=== PATIENT | female | born 1935 | race Caucasian/White ===

== ENCOUNTER 2016-12-13 14:05 | Emergency (ER) | payer MEDICARE ==
[~2016-12-13 14:05] MED LIST: AMBI5TAB; ATEN1TAB73; CALC-179; CITA20TA4 PO; DICY1TAB26 PO; ESTR42.5V PV; GAS-CAP3 PO; HYDR12.56 PO; LOPE2 PO; LORTA5 PO; PROBCAP11; RISE30 PO; VITA400C28 PO; WELL150T
[2016-12-13 14:09] VITALS: PULSE 77; RESP 18; O2SAT 96
[2016-12-13] MEDS ORDERED: RISE30 PO (14:14)
[2016-12-13] MEDS ORDERED: HYDR12.56 PO (14:14)
[2016-12-13] MEDS ORDERED: BUPR150CR PO (14:14)
[2016-12-13] MEDS ORDERED: LACTCAP8 PO (14:14)
[2016-12-13] MEDS ORDERED: ESTR42.5V VAGINAL (14:14)
[2016-12-13] MEDS ORDERED: ATEN25TA PO (14:14)
[2016-12-13] MEDS ORDERED: FAMOTIDINE 20 MG/2 ML VIAL IV PUSH ONE (14:15)
[2016-12-13] MEDS ORDERED: methylPREDNISolone SOD SUCC 125 MG/2 ML VIAL IVP ONE (14:15)
[2016-12-13] MEDS ORDERED: EPINEPHrine HCL (1:1000) 1 MG/ML VIAL IM ONE (14:15)
[2016-12-13 14:20] VITALS: BP 156/61; PULSE 66; RESP 18; TEMP 98; O2SAT 98
[2016-12-13] MEDS ORDERED: CALCCHW9 CHEW (14:28)
[2016-12-13] MEDS ORDERED: CITA20TA4 PO (14:28)
[2016-12-13] MEDS ORDERED: HYDR-3516 PO (14:30)
[2016-12-13 14:56] VITALS: BP 147/57; PULSE 80; RESP 18; O2SAT 98
[2016-12-13] MEDS ORDERED: BENA25TA3 PO (15:06)
[2016-12-13] MEDS ORDERED: ZYRT10CA PO (15:19)
[2016-12-13] MEDS ORDERED: ZANT300T PO (15:19)
[2016-12-13] MEDS ORDERED: PRED20 PO (15:19)
--- NOTE | 2016-12-13 15:19 | PD ---
HPI Chief Complaint: Allergic/Adverse Reaction Time Seen by Provider: 14:11 Travel History International Travel<30 days: No Contact w/Intl Traveler<30days: No Traveled to known affect area: No History of Present Illness HPI 81-year-old female complains of itching rash. Patient states that the rash started about 2 hours prior coming to the emergency room. Patient states the rash is worse on her face and upper extremity and upper chest and back. Patient used a new makeup in new hairspray today. Patient states that she has some discomfort in her throat however no shortness of breath. Patient denies any chest pain. 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) Cardiovascular Problems: Yes (MITRAL VALVE PROLAPSE) Diminished Hearing: No Hypertension: Yes Influenza Vaccination: Yes ?: Not Menopausal: Yes Past Surgical History Appendectomy: Yes Cholecystectomy: Yes Eye Surgery: Yes (1989) Genitourinary Surgery: Yes (URETHRA 1989) Joint Replacement: Yes (L KNEE) Other Surgery: Yes (BREAST CA) Social History Alcohol Use: Yes Tobacco Use: No Substance Use: No Allergies-Medications (Allergen,Severity, Reaction): Coded Allergies: No Known Allergies (Verified , 12/13/16) Reported Meds & Prescriptions Reported Meds & Active Scripts Active Reported Benadryl Allergy (Diphenhydramine HCl) 25 Mg Tab 50 Mg PO ONCE PRN Hydrocodone-Acetaminophen 5-325 mg Tab 1 Tab PO DAILY PRN Calcium 1200 (Calcium Carbonate-Vitamin D W/Minerals) 1,200-1,000 Mg-Unit Chew 1 Tab CHEW DAILY Citalopram (Citalopram Hydrobromide) 20 Mg Tab 20 Mg PO DAILY Estrace Vaginal (Estradiol) 0.01% Cream 1 Appl VAGINAL WEEKLY Actonel (Risedronate) 30 Mg Tab 30 Mg PO DAILY Probiotic (Lactobacillus Acidophilus) 1 Cap Cap 1 Cap PO TIDAC Wellbutrin SR 12 HR (Bupropion HCl) 150 Mg Tab 150 Mg PO Q12HR Hydrochlorothiazide 12.5 Mg Tab 12.5 Mg PO DAILY Atenolol 25 Mg Tab 25 Mg PO DAILY Review of Systems General / Constitutional: No: Fever Eyes: No: Visual changes HENT: No: Headaches Cardiovascular: No: Chest Pain or Discomfort Respiratory: No: Shortness of Breath Gastrointestinal: No: Abdominal Pain Genitourinary: No: Dysuria Musculoskeletal: No: Pain Skin: Positive Rash, Positive Itching Neurologic: No: Weakness Psychiatric: No: Depression Endocrine: No: Polydipsia Hematologic/Lymphatic: No: Easy Bruising Physical Exam Narrative GENERAL: Well-nourished, well-developed patient. SKIN: Focused skin assessment warm/dry. HEAD: Normocephalic. EYES: No scleral icterus. No injection or drainage. Throat: Mild uvula edema. NECK: Supple, trachea midline. No JVD or lymphadenopathy. CARDIOVASCULAR: Regular rate and rhythm without murmurs, gallops, or rubs. RESPIRATORY: Breath sounds equal bilaterally. No accessory muscle use. No stridor or wheezes. GASTROINTESTINAL: Abdomen soft, non-tender, nondistended. MUSCULOSKELETAL: No cyanosis, or edema. BACK: Nontender without obvious deformity. No CVA tenderness. Neurologic exam normal. Data Data Last Documented VS Vital Signs Date Time Temp Pulse Resp B/P Pulse Ox O2 Delivery O2 Flow Rate FiO2 12/13/16 14:56 80 18 147/57 98 Room Air 12/13/16 14:20 98.0 Orders Ecg Monitoring (12/13/16 14:11) Iv Access Insert/Monitor (12/13/16 14:11) Oximetry (12/13/16 14:11) Methylprednisolone So Succ Inj (Solumedr (12/13/16 14:15) Famotidine Inj (Pepcid Inj) (12/13/16 14:15) Epinephrine (1:1000) Inj (Adrenalin (1:1 (12/13/16 14:15) MDM Medical Decision Making Medical Screen Exam Complete: Yes Emergency Medical Condition: Yes Differential Diagnosis Differential diagnoses include allergic reaction, anaphylactoid reaction. Narrative Course 81-year-old female with itching rash. Epinephrine 0.3 mg IM. Patient took Benadryl 50 mg by mouth prior to arrival. Solu-Medrol 125 mg IV. Pepcid 20 mg IV. 1517 p.m. Reexamination patient's feeling better. Rash completely resolved. Diagnosis Primary Impression: Allergic reaction Qualified Code: T78.40XA - Allergic reaction, initial encounter Patient Instructions: General Instructions Additional Instructions: Take medications as directed. Follow-up with personal physician. Return if worse. Med/Other Pt SpecificInfo: Prescription(s) given Scripts Ranitidine (Zantac)300 Mg Pnp447 Mg PO DAILY #10 TAB Ref 0 Prov:Jero Rosenbaum MD 12/13/16 Cetirizine (Zyrtec Allergy)10 Mg Cap10 Mg PO DAILY #10 CAP Ref 0 Prov:Jero Rosenbaum MD 12/13/16 Prednisone 20 Mg Tab20 Mg PO BID #10 TAB Prov:Jero Rosenbaum MD 12/13/16 Disposition: 01 DISCHARGE HOME Condition: Stable Jero Rosenbaum MD Dec 13, 2016 15:19
== END 2016-12-13 15:27 | disposition home or self-care (01) ==
LOC: PHED 14:05
DX: T78.40XA Allergy, unspecified, initial encounter (principal)
CPT/HCPCS: 96372; 96374; 96375; 99282; J2930

== ENCOUNTER 2016-12-28 18:19 | Emergency (ER) | payer MEDICARE ==
[~2016-12-28] VITALS: Ht 149.9 cm; Wt 52.4 kg
[~2016-12-28 18:19] MED LIST changes: -AMBI5TAB; -ATEN1TAB73; +ATEN25TA PO; +BENA25TA3 PO; +BUPR150CR PO; -CALC-179; +CALCCHW9 CHEW; -DICY1TAB26 PO; -ESTR42.5V PV; +ESTR42.5V VAGINAL; -GAS-CAP3 PO; +HYDR-3516 PO; +LACTCAP8 PO; -LOPE2 PO; -LORTA5 PO; +PRED20 PO; -PROBCAP11; -VITA400C28 PO; -WELL150T; +ZANT300T PO; +ZYRT10CA PO
[2016-12-28 18:24] VITALS: BP 148/68; PULSE 68; RESP 16; TEMP 98.7; O2SAT 93
--- NOTE | 2016-12-28 18:57 | PD ---
HPI Chief Complaint: Fall Time Seen by Provider: 18:47 Travel History International Travel<30 days: No Contact w/Intl Traveler<30days: No Traveled to known affect area: No History of Present Illness HPI This 81-year-old female had a fall at home. It was a mechanical fall. She hit her left arm and also hit the left side of her head. She does not think she had a loss of consciousness. She has considerable swelling on the left side of her head . She also sustained a laceration of the left arm. She does not think she had a loss of consciousness. 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) Cardiovascular Problems: Yes (HTN) Diabetes: No Diminished Hearing: No Hypertension: Yes Tetanus Vaccination: < 5 Years Influenza Vaccination: No ?: Not Menopausal: Yes Past Surgical History Appendectomy: Yes Cholecystectomy: Yes Eye Surgery: Yes (1989) Genitourinary Surgery: Yes (URETHRA 1989) Joint Replacement: Yes (L KNEE) Other Surgery: Yes (BREAST CA) Social History Alcohol Use: Yes Tobacco Use: No Substance Use: No Allergies-Medications (Allergen,Severity, Reaction): Coded Allergies: No Known Allergies (Verified , 12/28/16) Reported Meds & Prescriptions Reported Meds & Active Scripts Active Reported Citalopram (Citalopram Hydrobromide) 20 Mg Tab 20 Mg PO DAILY Wellbutrin SR 12 HR (Bupropion HCl) 150 Mg Tab 150 Mg PO Q12HR Atenolol 25 Mg Tab 25 Mg PO DAILY Review of Systems General / Constitutional: No: Fever, Chills Eyes: No: Diploplia HENT: No: Headaches, Vertigo Cardiovascular: No: Chest Pain or Discomfort, Palpitations Respiratory: No: Cough, Shortness of Breath Gastrointestinal: No: Nausea, Vomiting Genitourinary: No: Urgency Musculoskeletal: Positive: Myalgias Neurologic: No: Weakness Endocrine: No: Heat Intolerance Physical Exam Narrative GENERAL: Well-developed female SKIN: Focused skin assessment warm/dry. HEAD: . Normocephalic. There is a swollen tender area in the left temporal portion of the scalp. There is a small abrasion overlying the area of swelling. There is no neck tenderness EYES: Pupils equal and round. No scleral icterus. No injection or drainage. ENT: No nasal bleeding or discharge. Mucous membranes pink and moist. NECK: Trachea midline. No JVD. CARDIOVASCULAR: Regular rate and rhythm. No murmur appreciated. RESPIRATORY: No accessory muscle use. Clear to auscultation. Breath sounds equal bilaterally. GASTROINTESTINAL: Abdomen soft, non-tender, nondistended. Hepatic and splenic margins not palpable. MUSCULOSKELETAL: No obvious deformities. No clubbing. No cyanosis. No edema. He is a very superficial laceration on the extensor surface of the left forearm. It is about 3 cm in length NEUROLOGICAL: Awake and alert. No obvious cranial nerve deficits. Motor grossly within normal limits. Normal speech. PSYCHIATRIC: Appropriate mood and affect; insight and judgment normal. Data Data Last Documented VS Vital Signs Date Time Temp Pulse Resp B/P Pulse Ox O2 Delivery O2 Flow Rate FiO2 12/28/16 18:24 98.7 68 16 148/[address] Brain W/O Iv Contrast(Rout) (12/28/16 18:52) [facility] Medical Decision Making Medical Screen Exam Complete: Yes Emergency Medical Condition: Yes Medical Record Reviewed: Yes Differential Diagnosis Differential includes skull fracture, subdural, contusion, laceration Narrative Course The laceration of the left arm is fairly superficial and I think will heal without sutures. CT scan of the brain has been obtained and is negative for fracture or hemorrhage. Wounds have been cleaned and the patient will be released Diagnosis Primary Impression: Contusion of head Qualified Code: S00.83XA - Contusion of other part of head, initial encounter Additional Impression: Laceration of arm Disposition: DISCHARGE HOME Condition: Stable Blu Ellis MD Dec 28, 2016 18:57
[2016-12-28 20:00] VITALS: BP 181/59; PULSE 62; RESP 18; O2SAT 97
--- NOTE | 2016-12-28 20:08 | RADHPO ---
EXAM DATE/TIME: 12/28/2016 19:51 [facility] COMPARISON: No previous studies available for comparison. INDICATIONS : Trauma. Fall. Left temporal pain and swelling. RADIATION DOSE: 55.67 CTDIvol (mGy) MEDICAL HISTORY : Hypertension. Carcinoma, breast. SURGICAL HISTORY : Tonsillectomy. ENCOUNTER: Initial ACUITY: 1 day PAIN SCALE: 4/10 LOCATION: Left temporal TECHNIQUE: Multiple contiguous axial images were obtained of the head. Using automated exposure control and adj ustment of the mA and/or kV according to patient size, radiation dose was kept as low as reasonably a chievable to obtain optimal diagnostic quality images. FINDINGS: There is a left temporal scalp hematoma identified. There is moderate periventricular and bilateral c entrum semiovale white matter disease, chronic in appearance. There are no fractures. There is no int racranial hemorrhage present. No masses. CONCLUSION: White matter disease and left temporal scalp hematoma. Avni Fan MD on December 28, 2016 at 20:06 Board Certified Radiologist. This report was verified electronically.
== END 2016-12-28 20:36 | disposition home or self-care (01) ==
LOC: PHED 18:19
DX: S00.93XA Contusion of unspecified part of head, initial encounter (principal); S41.119A Laceration without foreign body of unspecified upper arm, initial encounter; I10 Essential (primary) hypertension; W01.10XA Fall on same level from slipping, tripping and stumbling with subsequent striking against unspecified object, initial encounter; Y93.01 Activity, walking, marching and hiking; Y92.009 Unspecified place in unspecified non-institutional (private) residence as the place of occurrence of the external cause
CPT/HCPCS: 70450

== ENCOUNTER 2018-10-28 15:03 | Observation (INO) ==
--- NOTE | 2018-10-28 15:52 | ED ---
HPI General Chief complaint: Dizziness Stated complaint: Dizzy/"feels off" Time Seen by Provider: 10/28/18 15:47 Source: patient Mode of arrival: ambulatory Limitations: no limitations History of Present Illness HPI narrative: This 83-year-old female had an episode today where when she was looking up her vision was abnormal. She felt like it was blurred and she could not see very well. When she looked down things were okay. This episode lasted about 6 minutes and then resolved. Since this episode she has been able to walk. She had no numbness or weakness of the legs. She did did not have a headache. She felt a little bit dizzy but that has resolved. She has a history of mitral valve prolapse she has a history of breast cancer is a had gallbladder surgery. She does not take aspirin. She has had hypertension Related Data Home Medications Medication Instructions Recorded Confirmed bupropion HCl [Wellbutrin SR] 100 mg PO DAILY 07/08/18 10/28/18 calcium carbonate [Calcium 600] 1 cap PO DAILY 07/08/18 10/28/18 cholecalciferol (vitamin D3) 2,000 unit PO DAILY 07/08/18 10/28/18 [Vitamin D3] citalopram 20 mg PO DAILY 07/08/18 10/28/18 hydrochlorothiazide 12.5 mg PO DAILY 07/08/18 10/28/18 metoprolol tartrate 50 mg PO DAILY 07/08/18 10/28/18 Previous Rx's Medication Instructions Recorded aspirin [Aspir-] 81 mg PO DAILY #30 tab 10/29/18 Allergies Allergy/AdvReac Type Severity Reaction Status Date / Time No Known Allergies Allergy Verified 10/28/18 15:09 Review of Systems ROS: all other systems reviewed are negative [facility] Medical History Medical History Anxiety (Acute) Breast cancer (Acute) Cyst of ovary, left (Acute) History of chemotherapy (Acute) Hx of radiation therapy (Acute) Hypertension (Acute) Surgical History Surgical History History of bunionectomy (Acute) History of knee replacement (Acute) Hx of appendectomy (Acute) Hx of removal of ovary (Acute) Hx of tonsillectomy (Acute) S/P lumpectomy, left breast (Acute) Social History Social History Substance History: No History of Abuse Second Hand Smoke Exposure: No Smoking Status: Former smoker Tobacco Type: Cigarettes How Often Do You Have a Drink Containing Alcohol: 4 or more times a week Recent Travel in [facility] within the Last 8 Weeks: No Recent Out of Country Travel within the Last 8 Weeks: No Immunization History Tetanus Immunization: <5 Years Exam Narrative Exam Narrative: GENERAL: Well-developed female SKIN: Focused skin assessment warm/dry. HEAD: Atraumatic. Normocephalic. EYES: Pupils equal and round. No scleral icterus. No injection or drainage. Visual laws are intact by confrontation ENT: No nasal bleeding or discharge. Mucous membranes pink and moist. NECK: Trachea midline. No JVD. CARDIOVASCULAR: Regular rate and rhythm. No murmur appreciated. RESPIRATORY: No accessory muscle use. Clear to auscultation. Breath sounds equal bilaterally. GASTROINTESTINAL: Abdomen soft, non-tender, nondistended. Hepatic and splenic margins not palpable. MUSCULOSKELETAL: No obvious deformities. No clubbing. No cyanosis. No edema. NEUROLOGICAL: Awake and alert. No obvious cranial nerve deficits. Motor grossly within normal limits. Normal speech. PSYCHIATRIC: Appropriate mood and affect; insight and judgment normal. Course Initial Documented Vital Signs Temperature 98.5 F 10/28/18 15:10 Pulse Rate 83 10/28/18 15:10 Respiratory Rate 16 10/28/18 15:10 Blood Pressure 125/68 10/28/18 15:10 Pulse Oximetry 95 10/28/18 15:10 Last Documented Vital Signs Temperature 96.2 F L 10/29/18 08:00 Pulse Rate 65 10/29/18 08:00 Respiratory Rate 20 10/29/18 08:00 Blood Pressure 145/65 H 10/29/18 08:00 Pulse Oximetry 92 L 10/29/18 08:00 Sign Out Sign Out Data: Patient Sign Out occurred on 10/28/18 at 16:17. Patient's care was discussed, and care was transferred from Blu Romero MD to Jarod Horne MD. Sign Out Comment: This lady presented with a atypical visual disturbance that may be a TIA. Preliminary workup has been ordered Last updated by Blu Romero MD at 10/28/18 16:11 Post-Handoff Eval: The patient was initially evaluated by the previous provider and signed out to me at 4:00 PM at the beginning of my shift pending labs, CT head, CTA head and neck, and disposition. See his note for further details. This is an 83-year-old female with history of hypertension, who was brought in by her for evaluation of transient episode of change in vision while eating her nails done this afternoon. Patient reports that for about 6 minutes she had change in her vision that she was unable to describe other than stating it appeared blurry. This mainly occurred when she looked up. She states when she looked down her vision changes resolved. She did not have focal deficits or weakness at that time. No history of TIA. On arrival the patient feels improved. She no longer has visual changes. On exam she is awake and alert and is resting comfortably. There are no focal deficits. She denies headache. No chest pain or dyspnea. She has had a cough for about 3 weeks and has been seen by her primary care physician for this. Her labs are remarkable for slight thrombocytosis of 467 as well as slight hypokalemia of 3.1 which was replaced orally. UA is not suggestive of UTI. CT head: CONCLUSION: Chronic small vessel ischemic and atrophic changes. CTA brain: Conclusion:Chronic atherosclerotic disease without evidence of truncation or definite filling defects. CTA neck: Atherosclerosis without significant stenosis. The patient was given a full aspirin after CT is resulted, and her potassium was replaced. Both the patient and the patient's were made aware of all findings and provided copies of the CT reports. Patient likely had a TIA. Given significant atherosclerosis, I believe it is reasonable to place patient in observation for further TIA workup. Patient and the patient has been are amenable to this plan. I discussed the case with hospitalist Dr. Heck who will admit the patient to his service. Medical Decision Making MDM Narrative Medical Screen Exam Complete: Yes Emergency Medical Condition: Yes Differential Diagnosis Differential Diagnosis: Differential includes TIA, Lab Data Result diagrams: 10/28/18 15:48 10/28/18 15:48 Lab Results 10/28/18 10/28/18 10/28/18 Range/Units 15:48 15:48 15:48 CBC w Diff Auto diff final WBC 5.7 (4.0-11.0) th/mm3 RBC 4.41 (4.00-5.30) mil/mm3 Hgb 13.7 (11.6-15.3) gm/dL Hct 41.9 (35.0-46.0) % MCV 95.1 (80.0-100.0) fL MCH 31.1 (27.0-34.0) pg MCHC 32.8 (32.0-36.0) % RDW 13.4 (11.6-17.2) % Plt Count 467 H (150-450) th/mm3 MPV 7.3 (7.0-11.0) fL Neut % (Auto) 66.7 (16.0-70.0) % Lymph % (Auto) 20.4 (9.0-44.0) % [place] % (Auto) 9.2 H (0.0-8.0) % Eos % (Auto) 2.3 (0.0-4.0) % Baso % (Auto) 1.4 (0.0-2.0) % Neut # (Auto) 3.8 (1.8-7.7) th/mm3 Lymph # (Auto) 1.2 (1.0-4.8) th/mm3 [place] # (Auto) 0.5 (0.0-0.9) th/mm3 Eos # (Auto) 0.1 (0.0-0.4) th/mm3 Baso # (Auto) 0.1 (0.0-0.2) th/mm3 WBC Differential . Differential Comment . PT 10.4 (9.8-11.6) sec INR 1.0 Ratio APTT 28.5 (23.4-31.7) sec Sodium 143 (136-145) meq/L Potassium 3.1 L (3.5-5.1) meq/L Chloride 104 (98-107) meq/L Carbon Dioxide 33.0 H (21.0-32.0) meq/L Anion Gap 6 (5-15) meq/L BUN 15 (7-18) mg/dL Creatinine 0.86 (0.50-1.00) mg/dL Estimated GFR 63 L (>89) mL/min POC Glucose (68-110) mg/dl Random Glucose 91 (74-106) mg/dL Hemoglobin A1c (4.3-6.0) % Calcium 9.2 (8.5-10.1) mg/dL Troponin I Less than 0.02 L (0.02-0.05) ng/mL Triglycerides (42-150) mg/dL Cholesterol (120-200) mg/dL LDL Cholesterol, Calc (0-99) mg/dL HDL Cholesterol (40.0-60.0) mg/dL Cholesterol/HDL Ratio Ratio Urine Color (Yellw/Straw) Urine Clarity (Clear) Urine pH (5.0-8.5) Ur Specific Fleming (1.002-1.035) Urine Protein (Neg-Trace) mg/dL Urine Glucose (UA) (Negative) mg/dL Urine Ketones (Negative) mg/dL Urine Occult Blood (Negative) Urine Nitrate (Negative) Urine Bilirubin (Negative) Urine Urobilinogen (Less than 2) mg/dL Ur Leukocyte Esterase (Negative) Micro UA Comment Ur Microscopic Review Urine Culture Comments 10/28/18 10/28/18 10/29/18 Range/Units 17:00 21:39 06:02 CBC w Diff WBC (4.0-11.0) th/mm3 RBC (4.00-5.30) mil/mm3 Hgb (11.6-15.3) gm/dL Hct (35.0-46.0) % MCV (80.0-100.0) fL MCH (27.0-34.0) pg MCHC (32.0-36.0) % RDW (11.6-17.2) % Plt Count (150-450) th/mm3 MPV (7.0-11.0) fL Neut % (Auto) (16.0-70.0) % Lymph % (Auto) (9.0-44.0) % [place] % (Auto) (0.0-8.0) % Eos % (Auto) (0.0-4.0) % Baso % (Auto) (0.0-2.0) % Neut # (Auto) (1.8-7.7) th/mm3 Lymph # (Auto) (1.0-4.8) th/mm3 [place] # (Auto) (0.0-0.9) th/mm3 Eos # (Auto) (0.0-0.4) th/mm3 Baso # (Auto) (0.0-0.2) th/mm3 WBC Differential Differential Comment PT (9.8-11.6) sec INR Ratio APTT (23.4-31.7) sec Sodium (136-145) meq/L Potassium (3.5-5.1) meq/L Chloride (98-107) meq/L Carbon Dioxide (21.0-32.0) meq/L Anion Gap (5-15) meq/L BUN (7-18) mg/dL Creatinine (0.50-1.00) mg/dL Estimated GFR (>89) mL/min POC Glucose 111 (68-110) mg/dl Random Glucose (74-106) mg/dL Hemoglobin A1c 5.8 (4.3-6.0) % Calcium (8.5-10.1) mg/dL Troponin I (0.02-0.05) ng/mL Triglycerides (42-150) mg/dL Cholesterol (120-200) mg/dL LDL Cholesterol, Calc (0-99) mg/dL HDL Cholesterol (40.0-60.0) mg/dL Cholesterol/HDL Ratio Ratio Urine Color Yellow (Yellw/Straw) Urine Clarity Clear (Clear) Urine pH 6.0 (5.0-8.5) Ur Specific Fleming 1.010 (1.002-1.035) Urine Protein Negative (Neg-Trace) mg/dL Urine Glucose (UA) Negative (Negative) mg/dL Urine Ketones Negative (Negative) mg/dL Urine Occult Blood Negative (Negative) Urine Nitrate Negative (Negative) Urine Bilirubin Negative (Negative) Urine Urobilinogen 0.2 (Less than 2) mg/dL Ur Leukocyte Esterase Negative (Negative) Micro UA Comment Culture not ind Ur Microscopic Review Microscopic reviewed Urine Culture Comments Culture not ind 10/29/18 Range/Units 06:02 CBC w Diff WBC (4.0-11.0) th/mm3 RBC (4.00-5.30) mil/mm3 Hgb (11.6-15.3) gm/dL Hct (35.0-46.0) % MCV (80.0-100.0) fL MCH (27.0-34.0) pg MCHC (32.0-36.0) % RDW (11.6-17.2) % Plt Count (150-450) th/mm3 MPV (7.0-11.0) fL Neut % (Auto) (16.0-70.0) % Lymph % (Auto) (9.0-44.0) % [place] % (Auto) (0.0-8.0) % Eos % (Auto) (0.0-4.0) % Baso % (Auto) (0.0-2.0) % Neut # (Auto) (1.8-7.7) th/mm3 Lymph # (Auto) (1.0-4.8) th/mm3 [place] # (Auto) (0.0-0.9) th/mm3 Eos # (Auto) (0.0-0.4) th/mm3 Baso # (Auto) (0.0-0.2) th/mm3 WBC Differential Differential Comment PT (9.8-11.6) sec INR Ratio APTT (23.4-31.7) sec Sodium (136-145) meq/L Potassium (3.5-5.1) meq/L Chloride (98-107) meq/L Carbon Dioxide (21.0-32.0) meq/L Anion Gap (5-15) meq/L BUN (7-18) mg/dL Creatinine (0.50-1.00) mg/dL Estimated GFR (>89) mL/min POC Glucose (68-110) mg/dl Random Glucose (74-106) mg/dL Hemoglobin A1c (4.3-6.0) % Calcium (8.5-10.1) mg/dL Troponin I (0.02-0.05) ng/mL Triglycerides 115 (42-150) mg/dL Cholesterol 152 (120-200) mg/dL LDL Cholesterol, Calc 86 (0-99) mg/dL HDL Cholesterol 43.2 (40.0-60.0) mg/dL Cholesterol/HDL Ratio 3.51 Ratio Urine Color (Yellw/Straw) Urine Clarity (Clear) Urine pH (5.0-8.5) Ur Specific Fleming (1.002-1.035) Urine Protein (Neg-Trace) mg/dL Urine Glucose (UA) (Negative) mg/dL Urine Ketones (Negative) mg/dL Urine Occult Blood (Negative) Urine Nitrate (Negative) Urine Bilirubin (Negative) Urine Urobilinogen (Less than 2) mg/dL Ur Leukocyte Esterase (Negative) Micro UA Comment Ur Microscopic Review Urine Culture Comments Imaging Data Radiologist's impression: Head MRI 10/28/18 00:00 CONCLUSION: 1. Senescent changes with prominent periventricular small vessel ischemic white matter demyelination. 2. No acute abnormality. Specifically, no acute infarction or hemorrhage. Head CT 10/28/18 15:48 CONCLUSION: Chronic small vessel ischemic and atrophic changes. Neck CTA 10/28/18 15:48 CONCLUSION: 1. Atherosclerotic plaquing without any significant stenosis. Discharge Plan Discharge Disposition Patient Disposition: ED Admit(ED Internal Use Only) Discharge Condition Condition: Stable Discharge Order Discharge Orders: Discharge Order (Routine); Ordered 10/29/18 Ordered By: Will Heck ED Use Only Admit Order (Routine); Ordered 10/28/18 Ordered By: Jarod Horne Discharge Details Diagnosis: TIA (transient ischemic attack), Atherosclerosis, Hypokalemia Physicians Team ED Provider: Jarod Horne Primary Care Provider: Santosh Carbajal Attending Provider: Will Heck Status ED Status: Left Department Discharge Information Discharge Date/Time: 10/28/18 20:21
[2018-10-28 16:06] LABS: Baso # (Auto) 0.1 th/mm3 (0.0-0.2); Baso % (Auto) 1.4 % (0.0-2.0); Eos # (Auto) 0.1 th/mm3 (0.0-0.4); Eos % (Auto) 2.3 % (0.0-4.0); Hematocrit 41.9 % (35.0-46.0); Hemoglobin 13.7 gm/dL (11.6-15.3); Lymph # (Auto) 1.2 th/mm3 (1.0-4.8); Lymph % (Auto) 20.4 % (9.0-44.0); Mean Corpuscular HGB Conc 32.8 % (32.0-36.0); Mean Corpuscular Hemoglobin 31.1 pg (27.0-34.0); Mean Corpuscular Volume 95.1 fL (80.0-100.0); Mean Platelet Volume 7.3 fL (7.0-11.0); Mono # (Auto) 0.5 th/mm3 (0.0-0.9); Mono % (Auto) 9.2 % (0.0-8.0); Neut # (Auto) 3.8 th/mm3 (1.8-7.7); Neut % (Auto) 66.7 % (16.0-70.0); Platelet Count 467 th/mm3 (150-450); Red Blood Count 4.41 mil/mm3 (4.00-5.30); Red Cell Distribution Width 13.4 % (11.6-17.2); White Blood Count 5.7 th/mm3 (4.0-11.0)
[2018-10-28 16:15] LABS: Chloride 104 meq/L (98-107); Potassium 3.1 meq/L (3.5-5.1); Sodium 143 meq/L (136-145)
[2018-10-28 16:17] LABS: Anion Gap 6 meq/L (5-15); Blood Urea Nitrogen 15 mg/dL (7-18); Calcium 9.2 mg/dL (8.5-10.1); Glucose,Random 91 mg/dL (74-106)
[2018-10-28 16:19] LABS: Activated Partial Thrombo Time 28.5 sec (23.4-31.7); Prothrombin Time 10.4 sec (9.8-11.6)
[2018-10-28 16:21] LABS: Glomerular Filtration Rate 63 mL/min (>89)
[2018-10-28 17:17] LABS: Bilirubin,Urine Negative (Negative); Clarity,Urine Clear (Clear); Color,Urine Yellow (Yellw/Straw); Glucose,Urine (UA) Negative (Negative); Leukocyte Esterase,Urine Negative (Negative); Nitrite,Urine Negative (Negative); Urobilinogen,Urine 0.2 mg/dL (Less than 2)
--- NOTE | 2018-10-28 17:21 | CT ---
EXAM DATE: 10/28/2018 5:13 PM EST AGE/SEX: 83 years / Female INDICATIONS: Episode of blurriness when looking up today, lasted 6 minutes. Symptoms resolved. Evaluate for atherosclerosis. CLINICAL DATA: This is the patient's initial encounter. Patient reports that signs and symptoms have been present for 1 day and indicates a pain score of 0/10. MEDICAL/SURGICAL HISTORY: Carcinoma, breast. Hypertension. Appendectomy. Tonsillectomy. Left alexis st lumpectomy. RADIATION DOSE: 42.78 CTDI (mGy) ; Combined studies COMPARISON: [facility], CT HEAD W/O CONTRAST, 10/28/2018. . TECHNIQUE: Volumetric scanning was performed using a multi-row detector CT scanner during bolus infu myrna of 100 ml Omnipaque 350 (iohexol) nonionic water-soluble contrast as a cumulative dose for mult iple exams. The data was post processed with a variety of visualization algorithms including full v olume maximum intensity projection, multi-planar sliding thin slab reformation, curved planar reforma tion, and surface rendering techniques. Using automated exposure control and adjustment of the mA an d/or kV according to patient size, radiation dose was kept as low as reasonably achievable to obtain optimal diagnostic quality images. DICOM format image data is available electronically for review an d comparison. FINDINGS: There is There are areas of slight irregularity involving multiple branches bilaterally most likely due to chronic atherosclerotic changes mainly involving the bilateral MCA . There is no evidence for aneurysm or vascular malformation. No definite vessel truncation or filling defect is seen. Parts inv olving the aortic arch and takeoff of the major vessels not adequately characterized. of the aortic a rch is visualized and there are significant atherosclerotic changes with plaquing Conclusion:Chronic atherosclerotic disease without evidence of truncation or definite filling defects . Electronically signed by: Edy Estrada MD Board Certified Radiologist 10/28/2018 5:19 PM EST
--- NOTE | 2018-10-28 17:34 | CT ---
EXAM DATE: 10/28/2018 4:09 PM EST AGE/SEX: 83 years / Female INDICATIONS: Dizziness, nausea and vomiting. CLINICAL DATA: This is the patient's initial encounter. Patient reports that signs and symptoms have been present for 1 day and indicates a pain score of 0/10. MEDICAL/SURGICAL HISTORY: Vertigo. None. RADIATION DOSE: 59.60 CTDI (mGy) COMPARISON: [facility], CT BRAIN W/O CONTRAST, 12/28/2016. . TECHNIQUE: CT of the head without contrast. Using automated exposure control and adjustment of the mA and/or kV according to patient size, radiation dose was kept as low as reasonably achievable to ob tain optimal diagnostic quality images. DICOM format image data is available electronically for revi ew and comparison. FINDINGS: There is no evidence for intracranial hemorrhage, mass effect, mass lesions, or edema. The visualize d bony structures appear intact. Moderate degree of brain atrophy is seen. Moderate periventricular white matter changes are seen nonspecific mostly consistent with chronic small vessel ischemic change s. There are no signs of acute infarction for technique. CONCLUSION: Chronic small vessel ischemic and atrophic changes. Electronically signed by: Edy Estrada MD Board Certified Radiologist 10/28/2018 5:33 PM EST
--- NOTE | 2018-10-28 17:44 | CT ---
EXAM DATE: 10/28/2018 5:35 PM EST AGE/SEX: 83 years / Female INDICATIONS: Episode of blurriness when looking up today, lasted 6 minutes. Symptoms resolved. Evaluate for atherosclerosis. CLINICAL DATA: This is the patient's initial encounter. Patient reports that signs and symptoms have been present for 1 day and indicates a pain score of 0/10. MEDICAL/SURGICAL HISTORY: Carcinoma, breast. Hypertension. Appendectomy. Tonsillectomy. Left alexis st lumpectomy. RADIATION DOSE: 42.78 CTDI (mGy) ; Combined studies COMPARISON: No prior exams available for comparison. TECHNIQUE: Volumetric scanning was performed using a multirow detector CT scanner during bolus infus ion of 100 ml Omnipaque 350 (iohexol) nonionic water-soluble contrast as a cumulative dose for multi ple exams. The data was postprocessed with a variety of visualization algorithms including full-vol ume maximum intensity projection, multiplanar sliding thin-slab reformation, curved-planar reformatio n, and surface-rendering techniques. Using automated exposure control and adjustment of the mA and/o r kV according to patient size, radiation dose was kept as low as reasonably achievable to obtain opt imal diagnostic quality images. DICOM format image data is available electronically for review and c omparison. Percent stenosis is calculated using the diameter of the stenotic region over the diameter of the nor mal distal internal carotid artery. FINDINGS: There is atherosclerotic plaquing at the origin of the aortic arch with one area near the SVC possibl y artifactually created creates blooming artifact. There is involvement of the major vessels from the arch without any significant stenosis. There is moderate atherosclerotic plaquing at the origin of both internal carotid arteries worse on t he left without any appreciable stenosis. The vertebral arteries appear intact. CONCLUSION: 1. Atherosclerotic plaquing without any significant stenosis. Electronically signed by: Edy Estrada MD Board Certified Radiologist 10/28/2018 5:43 PM EST
[2018-10-28] MEDS ORDERED: Insulin NovoLOG Aspart Correctional Sugar Inj SQ PRN (18:28)
[2018-10-28] MEDS ORDERED: Dextrose 50% in Water 50 ML Vial IV.PUSH PRN (18:28)
[2018-10-28] MEDS ORDERED: Sod Chloride 0.9% Inj 1,000 ML IV.CONT SCH (18:30)
[2018-10-28] MEDS ORDERED: Acetaminophen 325 MG Tablet PO PRN (18:33)
--- NOTE | 2018-10-28 19:23 | MR ---
EXAM DATE: 10/28/2018 7:20 PM EST AGE/SEX: 83 years / Female INDICATIONS: Dizziness. Visual disturbance. CLINICAL DATA: This is the patient's initial encounter. Patient reports that signs and symptoms have been present for 1 day and indicates a pain score of 0/10. MEDICAL/SURGICAL HISTORY: Hypertension. Carcinoma, breast. Appendectomy. Cholecystectomy. To cris knee replacement, left. ORIF left wrist. Breast lumpectomy. COMPARISON: [facility], CT HEAD W/O CONTRAST, 10/28/2018. . TECHNIQUE: Multiplanar, multisequence examination of the brain was performed without contrast. FINDINGS: Cerebrum: Moderate diffuse cerebral atrophy. The ventricles are normal for age. No evidence of midl ine shift, mass lesion, hemorrhage or acute infarction. No extraaxial fluid collections are seen. T he pituitary gland and suprasellar cistern are normal in configuration. White Matter: Prominent periventricular white matter T2 prolongation. Posterior Fossa: The cerebellum and brainstem are intact. The 4th ventricle is midline. The cerebel lopontine angle is unremarkable. The cerebellar tonsils are normal in position. Diffusion Imaging: No focal areas of restricted diffusion are seen. No evidence of acute infarction . Extracranial: The visualized portions of the orbits and paranasal sinuses are unremarkable. CONCLUSION: 1. Senescent changes with prominent periventricular small vessel ischemic white matter demyelination . 2. No acute abnormality. Specifically, no acute infarction or hemorrhage. Electronically signed by: Ty North MD Board Certified Radiologist 10/28/2018 7:22 PM EST
[2018-10-28 21:15] VITALS: RESP 20
[2018-10-28] MEDS ORDERED: Melatonin 5 MG Tablet PO ONE (23:27)
--- NOTE | 2018-10-29 09:53 | ECHRPT ---
Indication: CVA/TIA CONCLUSIONS Normal left ventricular size. Wall thickness is measured at the upper limits of normal. The left ventricular systolic function is normal with an estimated ejection fraction in the range of 55-60%. Calcification of the posterior mitral valve leaflet. Trace mitral valve regurgitation. There is trace tricuspid valve regurgitation. The estimated pulmonary arterial pressure is 40 mmHg. BP: / HR: Rhythm: MEASUREMENTS (Male / Female) Normal Values Technical Quality:Fair 2D ECHO LV Diastolic Diameter PLAX 3.8 cm 4.2 - 5.9 / 3.9 - 5.3 cm LV Systolic Diameter PLAX 2.6 cm IVS Diastolic Thickness 1.1 cm 0.6 - 1.0 / 0.6 - 0.9 cm LVPW Diastolic Thickness 1.0 cm 0.6 - 1.0 / 0.6 - 0.9 cm LV Relative Wall Thickness 0.6 RV Internal Dim ED PLAX 2.4 cm LVOT Diameter 2.1 cm Aortic Root Diameter 2.5 cm LA Systolic Diameter LX 3.0 cm 3.0 - 4.0 / 2.7 - 3.8 cm DOPPLER AV Peak Velocity 126.0 cm/s AV Peak Gradient 6.4 mmHg LVOT Peak Velocity 99.7 cm/s LVOT Peak Gradient 4.0 mmHg AV Area Cont Eq pk 2.7 cm Mitral E Point Velocity 125.0 cm/s Mitral A Point Velocity 111.0 cm/s Mitral E to A Ratio 1.1 LV E' Lateral Velocity 11.4 cm/s Mitral E to LV E' Lateral Ratio 11.0 LV E' Septal Velocity 9.1 cm/s Mitral E to LV E' Septal Ratio 13.8 TR Peak Velocity 273.0 cm/s TR Peak Gradient 29.8 mmHg Right Atrial Pressure 10.0 mmHg Pulmonary Artery Systolic Pressu 39.8 mmHg Right Ventricular Systolic Press 39.8 mmHg PV Peak Velocity 90.9 cm/s PV Peak Gradient 3.3 mmHg FINDINGS LEFT VENTRICLE Normal left ventricular size. Wall thickness is measured at the upper limits of normal. The left ventricular systolic function is normal with an estimated ejection fraction in the range of 55-60%. RIGHT VENTRICLE Normal right ventricular size and systolic function. LEFT ATRIUM The left atrial size is normal. RIGHT ATRIUM The right atrial size is normal. ATRIAL SEPTUM Normal atrial septal thickness without atrial level shunting by limited color doppler interrogation. AORTA The aortic root and proximal ascending aorta are normal in size on limited imaging. MITRAL VALVE Calcification of the posterior mitral valve leaflet. Trace mitral valve regurgitation. AORTIC VALVE Trileaflet aortic valve. No aortic valve stenosis or regurgitation. TRICUSPID VALVE There is trace tricuspid valve regurgitation. The estimated pulmonary arterial pressure is 40 mmHg. PULMONARY VALVE No pulmonary valve regurgitation or stenosis. VESSELS The inferior vena cava is normal in size. PERICARDIUM No pericardial effusion. Micky Tierney MD (Electronically Signed) Final Date:29 October 2018 09:51
[2018-10-29 10:13] VITALS: BP 145/65; PULSE 65; TEMP 96.2; O2SAT 92
--- NOTE | 2018-10-29 10:43 | P.HPIM ---
History of Present Illness Primary Care Physician: Santosh Carbajal MD Chief Complaint: Blurry vision, dizziness History of Present Illness: 84-year-old female for past medical history of hypertension, presented yesterday for evaluation of an acute onset of episode of blurry visions lasting up to 6-minute mostly when patient looked up. Patient also noted dizziness however has no nausea or vomiting. Speech. She did present to the ED for rule out TIA versus CVA. Initial head scan was unremarkable and patient was admitted for rule out CVA. Follow-up brain MRI is ordered did not reveal any infarct. She denies any chest pain Review of Systems Review of Systems: all other systems reviewed are negative [facility] Medical History Medical History Anxiety (Acute) Breast cancer (Acute) Cyst of ovary, left (Acute) History of chemotherapy (Acute) Hx of radiation therapy (Acute) Hypertension (Acute) Surgical History Surgical History History of bunionectomy (Acute) History of knee replacement (Acute) Hx of appendectomy (Acute) Hx of removal of ovary (Acute) Hx of tonsillectomy (Acute) S/P lumpectomy, left breast (Acute) Family History Family History Other Heart disease Social History Social History Substance History: No History of Abuse Second Hand Smoke Exposure: No Smoking Status: Former smoker Tobacco Type: Cigarettes How Often Do You Have a Drink Containing Alcohol: 4 or more times a week Recent Travel in [facility] within the Last 8 Weeks: No Recent Out of Country Travel within the Last 8 Weeks: No Immunization History Tetanus Immunization: <5 Years Medications and Allergies Allergies Allergy/AdvReac Type Severity Reaction Status Date / Time No Known Allergies Allergy Verified 10/28/18 15:09 Home Medications Medication Instructions Recorded Confirmed Type bupropion HCl [Wellbutrin SR] 100 mg PO DAILY 07/08/18 10/28/18 History calcium carbonate [Calcium 600] 1 cap PO DAILY 07/08/18 10/28/18 History cholecalciferol (vitamin D3) 2,000 unit PO DAILY 07/08/18 10/28/18 History [Vitamin D3] citalopram 20 mg PO DAILY 07/08/18 10/28/18 History hydrochlorothiazide 12.5 mg PO DAILY 07/08/18 10/28/18 History metoprolol tartrate 50 mg PO DAILY 07/08/18 10/28/18 History Active Medications: Active Medications Acetaminophen (Tylenol) 650 mg PO Q4H PRN PRN Reason: Temp > 100.4 Dextrose (D50w Vial) 50 ml IV.PUSH UNSCH PRN PRN Reason: per Hypoglycemic Protocol Enalaprilat (Vasotec Inj) 1.25 mg IV.PUSH Q4H PRN PRN Reason: SBP> OR = 180, DBP> OR = 100 Glucagon (Glucagon Inj) 1 mg OTHER UNSCH PRN PRN Reason: per Hypoglycemic Protocol Sodium Chloride (Ns Inj) 1,000 mls @ 70 mls/hr IV.CONT .[id number] EMMA Last Infusion: 10/29/18 06:09 Dose: 70 mls/hr Insulin Aspart (Novolog Insulin Correctional Sugar Inj) 0 unit SQ ACHS PRN; Protocol PRN Reason: Per Protocol Ondansetron HCl (Zofran Inj) 4 mg IV.PUSH Q6H PRN PRN Reason: NAUSEA Sodium Chloride (Ns Flush) 2 ml IV.FLUSH PRN PRN PRN Reason: FLUSH AFTER USING IV ACCESS Physical Exam Vital signs: Vital Signs 10/28/18 15:10 10/28/18 15:30 10/28/18 15:51 Temperature 98.5 F Pulse Rate 83 79 72 Respiratory Rate 16 18 Blood Pressure 125/68 174/76 H Pulse Oximetry 95 96 10/28/18 16:21 10/28/18 16:22 10/28/18 16:54 Temperature Pulse Rate 78 78 73 Respiratory Rate 18 16 Blood Pressure 150/69 H 127/47 L Pulse Oximetry 99 96 10/28/18 17:54 10/28/18 19:33 10/28/18 21:00 Temperature 98.1 F Pulse Rate 71 75 76 Respiratory Rate 20 18 20 Blood Pressure 170/65 H 169/67 H 185/79 H Pulse Oximetry 97 96 96 10/28/18 21:05 10/28/18 23:57 10/29/18 00:00 Temperature 97 F L Pulse Rate 73 72 64 Respiratory Rate 20 Blood Pressure 140/64 Pulse Oximetry 95 10/29/18 04:00 10/29/18 08:00 Temperature 96.1 F L 96.2 F L Pulse Rate 72 65 Respiratory Rate 20 20 Blood Pressure 145/67 H 145/65 H Pulse Oximetry 94 L 92 L Intake & Output 10/28/18 10/29/18 10/29/18 18:59 06:59 18:59 Intake Total Balance Weight 53 kg 53.3 kg Intake: IV NS Inj 1,000 ML @ 70 mls/hr IV. CONT .[id number] EMMA Rx#: [id number] Oral 0 / 0 Other: # Voids 1 2 Date of Last Bowel Movement 10/28/18 10/29/18 # Bowel Movements 1 Weight On Admission 53.8 kg Narrative: GENERAL: NAD SKIN: Warm and dry. HEAD: Atraumatic. Normocephalic. EYES: Pupils equal and round. No scleral icterus. No injection or drainage. ENT: No nasal bleeding or discharge. Mucous membranes pink and moist. NECK: Trachea midline. No JVD. CARDIOVASCULAR: Regular rate and rhythm. RESPIRATORY: No accessory muscle use. Clear to auscultation. Breath sounds equal bilaterally. GASTROINTESTINAL: Abdomen soft, non-tender, nondistended. Hepatic and splenic margins not palpable. MUSCULOSKELETAL: Extremities without clubbing, cyanosis, or edema. No obvious deformities. NEUROLOGICAL: Awake and alert. No obvious cranial nerve deficits. Motor grossly within normal limits. Five out of 5 muscle strength in the arms and legs. Normal speech. PSYCHIATRIC: Appropriate mood and affect; insight and judgment normal. Results Labs CBC & Chem 7: 10/28/18 15:48 10/28/18 15:48 Imaging Impressions Head MRI 10/28/18 00:00 CONCLUSION: 1. Senescent changes with prominent periventricular small vessel ischemic white matter demyelination. 2. No acute abnormality. Specifically, no acute infarction or hemorrhage. Head CT 10/28/18 15:48 CONCLUSION: Chronic small vessel ischemic and atrophic changes. Neck CTA 10/28/18 15:48 CONCLUSION: 1. Atherosclerotic plaquing without any significant stenosis. Caprini VTE Risk Assessment Caprini VTE Risk Assessment: Moderate/High Risk (score >= 2) Caprini Risk Assessment Model: Point Value = 1 Point Value = 2 Point Value = 3 Point Value = 5 Age 41-60 Minor surgery BMI > 25 kg/m2 Swollen legs Varicose veins or History of unexplained or recurrent spontaneous Oral contraceptives or hormone replacement Sepsis (< 1 month) Serious lung disease, including pneumonia (< 1 month) Abnormal pulmonary function Acute myocardial infarction Congestive heart failure (< 1 month) History of inflammatory bowel disease Medical patient at bed rest Age 61-74 Arthroscopic surgery Major open surgery (> 45 min) Laparoscopic surgery (> 45 min) Malignancy Confined to bed (> 72 hours) Immobilizing plaster cast Central venous access Age >= 75 History of VTE Family history of VTE Factor V Leiden Prothrombin [id number] Lupus anticoagulant Anticardiolipin antibodies Elevated serum homocysteine Heparin-induced thrombocytopenia Other congenital or acquired thrombophilia Stroke (< 1 month) Elective arthroplasty Hip, pelvis, or leg fracture Acute spinal cord injury (< 1 month) Prophylaxis Regimen: Total Risk Factor Score Risk Level Prophylaxis Regimen 0-1 Low Early ambulation 2 Moderate Order ONE of the following: *Sequential Compression Device (SCD) *Heparin 5000 units SQ BID 3-4 Higher Order ONE of the following medications: *Heparin 5000 units SQ TID *Enoxaparin/Lovenox 40 mg SQ daily (WT < 150 kg, CrCl > 30 mL/min) *Enoxaparin/Lovenox 30 mg SQ daily (WT < 150 kg, CrCl > 10-29 mL/min) *Enoxaparin/Lovenox 30 mg SQ BID (WT < 150 kg, CrCl > 30 mL/min) AND/OR *Sequential Compression Device (SCD) 5 or more Highest Order ONE of the following medications: *Heparin 5000 units SQ TID (Preferred with Epidurals) *Enoxaparin/Lovenox 40 mg SQ daily (WT < 150 kg, CrCl > 30 mL/min) *Enoxaparin/Lovenox 30 mg SQ daily (WT < 150 kg, CrCl > 10-29 mL/min) *Enoxaparin/Lovenox 30 mg SQ BID (WT < 150 kg, CrCl > 30 mL/min) AND *Sequential Compression Device (SCD) Assessment and Plan Plan 83-year-old female with TIA Head CT noted and reviewed by me without any intracranial abnormality Brain MRI noted and reviewed by me with no acute abnormality 2D echo with EF of 55-60% Patient symptoms resolved She Was started on a baby aspirin Lipid profile pending Hypertension She was continued treatment with beta-nathaniel and hydrochlorothiazide DVT prophylaxis: Bilateral SCDs Since her admission, Patient's condition tremendously improved therefore she will be discharged home with follow-up with her PCP. Discharge patient to home Condition on discharge: Improved Regular Diet as tolerated Ad Faby activity Rx written: see EMR Follow-up with primary care physician H&P: Quality VTE Deep Vein Thrombosis/Pulmonary Embolism Present on Admission: No
[2018-10-29 12:04] LABS: Chol/HDL Ratio 3.51 Ratio; HDL Cholesterol 43.2 mg/dL (40.0-60.0)
[2018-10-29 13:19] LABS: Hemoglobin A1c 5.8 % (4.3-6.0)
--- NOTE | 2018-10-29 21:09 | ECG ---
Date Performed: 10/28/2018 Time Performed: 16:02:43 PTAGE: 83 years EKG: Sinus rhythm NONSPECIFIC T-WAVE ABNORMALITY BORDERLINE ECG PREVIOUS TRACING : 07/08/2018 16.52 Since the previous tracing, no significant change noted DOCTOR: Talita Webster Interpretating Date/Time 10/29/2018 21:09:08
== END 2018-10-29 10:57 | disposition home or self-care (01) ==
LOC: PHED 15:03 → PHEDA 15:03 → PH3 20:21
PROVIDERS: ADMIT Hospitalist; ATTEND Hospitalist
DX: Z79.899 Other long term (current) drug therapy; G45.9 Transient cerebral ischemic attack, unspecified; E87.6 Hypokalemia; I10 Essential (primary) hypertension; Z79.82 Long term (current) use of aspirin; Z85.3 Personal history of malignant neoplasm of breast; Z92.3 Personal history of irradiation; F41.9 Anxiety disorder, unspecified; Z87.891 Personal history of nicotine dependence; Z92.21 Personal history of antineoplastic chemotherapy
CPT/HCPCS: 70450; 70496; 70498; 70551; 80048; 80061; 81001; 82948; 82962; 83036; 84484; 85025; 85610; 85730; 93005; 93306; 96360; 96361; 99285; G0378; J7030; Q9967